=== PATIENT | female | born 1985 | race Caucasian/White ===

== ENCOUNTER 2017-10-12 07:14 | Inpatient (IN) | payer OTHER ==
[2017-10-12] MEDS ORDERED: LR 1,000 ML IV PRN (07:27)
[2017-10-12] MEDS ORDERED: OLIVE OIL 118 ML BTL MISC PRN (07:27)
[2017-10-12] MEDS ORDERED: OXYTOCIN 20 UNIT in LR 1,000 ML IV PRN (07:27)
[2017-10-12] MEDS ORDERED: EPSOM SALT 454 GM TP PRN (07:27)
[2017-10-12] MEDS ORDERED: TERBUTALINE SULFATE 1 MG/ML VIAL IV PRN (07:27)
[2017-10-12 07:42] LABS: PLATELET COUNT 113 10^3/uL (150-400)
[2017-10-12] MEDS ORDERED: fentaNYL 2MCG/ML/BUP 0.1% RTU 100 ML BAG EP ONE (07:56)
[2017-10-12] MEDS ORDERED: PHENYLEPHRINE HCL 100 MCG/ML SYR ONE (07:57)
--- NOTE | 2017-10-12 08:27 | GHP ---
[f rep st] PREOP HISTORY AND PHYSICAL DATE OF ADMISSION: 10/12/2017 ADMISSION DIAGNOSIS: Intrauterine at 38 weeks gestation, who presented in active labor. The patient is a 32-year-old 4, para 2-0-1- 2 at 38 weeks gestation, who has been having contractions on and off for the last 2 days. Her contractions began increasing in frequency and intensity this morning around 2:00 a.m., and she presented to Labor and Delivery, and was found to be at least 6 cm dilated, and is requesting an epidural. The patient' s estimated date of confinement is 10/26/2017, dated by last menstrual period of 01/18/2017, consistent with a 9 week ultrasound. The patient established care at [facility] at 9 weeks gestation. has been overall uncomplicated. PAST MEDICAL HISTORY: Negative. MEDICATIONS: vitamins, DAVID. PAST SURGICAL HISTORY: Repair of nose fracture, and tonsillectomy, and ear tubes. ALLERGIES: No known drug allergies. SOCIAL HISTORY: The patient is a CPA. She is . She lives with her partner and their 2 other children. She denies tobacco, alcohol, or drug use. FAMILY MEDICAL HISTORY: Noncontributory. [employer] TECHNICIAN HISTORY: Menarche age 13. Periods every 28 days lasting 3 days. She is a 4, para 2-0-1-2. In 01/2010, she had a spontaneous vaginal delivery of a 6 pound 8 ounce male at 40 weeks gestation. She had an epidural. and delivery were uncomplicated. In 02/2012, she had a spontaneous vaginal delivery of a 7 pound 10 ounce male at 39 and 5/7th weeks gestation. and delivery were uncomplicated. In 07/2016, she had a spontaneous . She was found to be with a Mirena IUD in place. The Mirena was then removed, and she later had a spontaneous . The patient had thought family status had been complete, but after that experience she decided to conceive again. The current has been uncomplicated. The patient denies any history of any abnormal Pap smears or sexually transmitted diseases. REVIEW OF SYSTEMS: A 10-point review of systems is negative. She has positive movement. No loss of fluid. No vaginal bleeding. She denies headache or changes in vision, nausea, or vomiting. PHYSICAL EXAMINATION: VITAL SIGNS: Stable. GENERAL APPEARANCE: Alert and oriented x3. HEART: Rate is irregularly irregular. LUNGS: Clear to auscultation bilaterally. NECK: Mobile and supple. NEUROMUSCULAR: Grossly intact. NEUROLOGIC: Grossly intact. ABDOMEN: Gravid, nondistended, nontender. EXTREMITIES: Reveal no calf tenderness or edema. : heart tracing is category 1. She is having regular contractions. Infant is in the vertex presentation. She is 6 cm dilated, 100% effaced, and -2 station. LABORATORY DATA: labs: Blood type O positive. Antibody screen negative. Rubella low immune. GBS is negative. HBsAg negative. Her 50 g glucose was 94. She had a negative testing. ASSESSMENT/PLAN: A 32-year-old, 4, para 2-0-1-2, who is 38 weeks gestation in active labor. She is receiving an epidural, and will be managed expectantly. /[id number]/MODL MTDD
[2017-10-12] MEDS ORDERED: ONDANSETRON 4 MG/2 ML VIAL IVP PRN (08:32)
[2017-10-12] MEDS ORDERED: PHENYLEPHRINE HCL 100 MCG/ML SYR IVP PRN (08:32)
--- NOTE | 2017-10-12 08:32 | PREANESOB ---
Obstetric Pre-Anesthesia Info - General Info Proposed Procedure: Labor Epidural : 4 Para: 2 JOYA: 10/26/17 Gestational Age: 38 week(s) and 0 day(s) - Info Status: Full Term FHR Pattern: Reassuring - Labor Status Indications for Labor Analgesia: Pain Control Labor Epidural: Proposed (RBA discussed, patient agrees to proceed) Anesthesia Allergies/Adverse Reactions: Allergy/AdvReac Type Severity Reaction Status Date / Time No Known Allergies Allergy Unverified 10/12/17 07:36 Visit Medications: Generic Name Dose Route Start Last Admin Trade Name Freangelito PRN Reason Stop Dose Admin Lactated Ringer's 1,000 mls @ 0 mls/hr 10/12/17 07:27 Lr IV 10/13/17 07:26 PRN PRN SEE PROTOCOL CONDITIONS Protocol Per Protocol Oxytocin 20 unit/ Lactated 1,002 mls @ 150 mls/hr 10/12/17 07:27 Ringer's IV PRN PRN Post- bleeding Ibuprofen 600 mg 10/12/17 07:27 Motrin PO 04/10/18 07:26 Q6HRS PRN post , inflammation Magnesium Sulfate 454 gm 10/12/17 07:27 Epsom Salt TP 04/10/18 07:26 Q1H PRN perineal discomfort [place] Oil 118 ml 10/12/17 07:27 Sweet Oil MISC 04/10/18 07:26 ONCE PRN perineal massage Terbutaline Sulfate 0.25 mg 10/12/17 07:27 Brethine IV 04/10/18 07:26 ONCE PRN Tachysystole Discontinued Medications Generic Name Dose Route Start Last Admin Trade Name Freq PRN Reason Stop Dose Admin Fentanyl/Bupivacaine HCl Confirm 10/12/17 07:56 Fentanyl/Bupivacaine/Ns 2 Mcg/Ml 0.1% (Premix Administered 10/12/17 07:57 Dose 100 ml EP .STK-MED ONE Phenylephrine HCl Confirm 10/12/17 07:57 Neosynephrine Administered 10/12/17 07:58 Dose 1,000 mcg .ROUTE .STK-MED ONE - Vital Signs Height/Weight (Nursing): Height 170.18 cm Weight 96.162 kg Labs: 10/12/17 07:30 Patient ABO/Rh O POSITIVE 10/12/17 07:30
[2017-10-12] MEDS ORDERED: fentaNYL 2MCG/ML/BUP 0.1% RTU 100 ML EP SCH (09:00)
[2017-10-12] MEDS ORDERED: LR 500 ML IV SCH (09:00)
--- NOTE | 2017-10-12 10:29 | OBPROG ---
Labor Progress Note Assessment/Plan: Assessment: Plan: Subjective/Intrapartum Course: 10/12/17 10:26 patient is comfortable with epidural. I examined patient after epidural and patient was found to be 3/80/-2, not 6 cm. discussed SVE - will reassess in an hour or two. Objective: 10/12/17 07:30 Patient ABO/Rh O POSITIVE 10/12/17 07:30 - SVE Dilation (cm): 3 Effacement (%): 80 Station: -2 Membranes: Intact - FHR Assessment Nolasco FHR Pattern Variability: Moderate FHR Category: 1 - AP Antepartum Course: 10/12/17 10:28 uncomplicated . thought family status was complete and then conceived with Mirena in. Had Mirena removed and then had sab. decided wanted to have another . uncomplicated . negative genetic testing. Oxytocin Orders Assessment - Pre-Induction/Augmentation Assessment Gestational Age: 38 week(s) and 0 day(s) ICD10 Worksheet Patient Problems: Problems Problem Status Onset Normal labor Acute
--- NOTE | 2017-10-12 13:52 | OBPROG ---
Labor Progress Note Assessment/Plan: Assessment: Plan: Subjective/Intrapartum Course: 10/12/17 10:26 patient is comfortable with epidural. I examined patient after epidural and patient was found to be 3/80/-2, not 6 cm. discussed SVE - will reassess in an hour or two. 10/12/17 13:45 patient comfortable with epidural. SVE per rn 5-6 cm. will augment as needed. status reassuring. Objective: 10/12/17 07:30 Patient ABO/Rh O POSITIVE 10/12/17 07:30 - SVE Dilation (cm): 5 Effacement (%): 80 Station: 0 Membranes: Intact - Contraction Pattern Assessment Current Contraction Pattern: Regular - FHR Assessment Nolasco FHR (bpm): 130 FHR Pattern Variability: Moderate FHR Category: 1 - AP Antepartum Course: 10/12/17 10:28 uncomplicated . thought family status was complete and then conceived with Mirena in. Had Mirena removed and then had sab. decided wanted to have another . uncomplicated . negative genetic testing. Oxytocin Orders Assessment - Pre-Induction/Augmentation Assessment Gestational Age: 38 week(s) and 0 day(s) ICD10 Worksheet Patient Problems: Problems Problem Status Onset Normal labor Acute
--- NOTE | 2017-10-12 14:39 | OBPROG ---
Labor Progress Note Assessment/Plan: Assessment: Plan: Subjective/Intrapartum Course: 10/12/17 10:26 patient is comfortable with epidural. I examined patient after epidural and patient was found to be 3/80/-2, not 6 cm. discussed SVE - will reassess in an hour or two. 10/12/17 13:45 patient comfortable with epidural. SVE per rn 5-6 cm. will augment as needed. status reassuring. 10/12/17 14:37 patient overall comfortable but still feels exams and pressure. arom - scant amount of clear fluid. pushed bolus button. status reassuring. Objective: 10/12/17 07:30 Patient ABO/Rh O POSITIVE 10/12/17 07:30 - SVE Dilation (cm): 6 Effacement (%): 90 Station: 0 Membranes: Intact Amniotic Fluid Color: Clear - Contraction Pattern Assessment Current Contraction Pattern: Regular - FHR Assessment Nolasco FHR Pattern Variability: Moderate FHR Category: 1 - Procedures Non-surgical Procedures: Amniotomy - AP Antepartum Course: 10/12/17 10:28 uncomplicated . thought family status was complete and then conceived with Mirena in. Had Mirena removed and then had sab. decided wanted to have another . uncomplicated . negative genetic testing. Oxytocin Orders Assessment - Pre-Induction/Augmentation Assessment Gestational Age: 38 week(s) and 0 day(s) ICD10 Worksheet Patient Problems: Problems Problem Status Onset Normal labor Acute
[2017-10-12] MEDS ORDERED: BUPIVACAINE 0.25% 30 ML SDV ONE (14:56)
[2017-10-12] MEDS ORDERED: AMMONIA AROMATIC 1 EACH AMP IH ONE (15:04)
[2017-10-12] MEDS ORDERED: LIDOCAINE 1% 300 MG/30 ML SDV ONE (15:04)
[2017-10-12] MEDS ORDERED: OLIVE OIL 118 ML BTL ONE (15:04)
[2017-10-12] MEDS ORDERED: OXYTOCIN 10 UNIT/ML VIAL ONE (15:05)
[2017-10-12] MEDS ORDERED: TERBUTALINE SULFATE 1 MG/ML VIAL ONE (15:05)
[2017-10-12] MEDS ORDERED: MISOPROSTOL 200 MCG TAB ONE (15:05)
--- NOTE | 2017-10-12 16:30 | OBDEL ---
Info Type: Vaginal Presentation at Delivery: Vertex L&D Analgesia/Anesthesia Type: Epidural GBS+: No - Hospital Course Intrapartum: 10/12/17 10:26 patient is comfortable with epidural. I examined patient after epidural and patient was found to be 3/80/-2, not 6 cm. discussed SVE - will reassess in an hour or two. 10/12/17 13:45 patient comfortable with epidural. SVE per rn 5-6 cm. will augment as needed. status reassuring. 10/12/17 14:37 patient overall comfortable but still feels exams and pressure. arom - scant amount of clear fluid. pushed bolus button. status reassuring. 10/12/17 16:26 rapid progress to complete. Indications for Delivery: Spontaneous Labor Vaginal Delivery - Delivery Provider Delivery Physician/CNM: Kandy Coleman - Labor and Delivery Onset of Contractions Date: 10/12/17 Onset of Contractions Time: 02:00 Onset of Contractions Type: Spontaneous Rupture of Membranes Date: 10/12/17 Rupture of Membranes Time: 14:37 Rupture of Membranes Type: Artificial Amniotic Fluid Color: Clear Dilation Complete Date: 10/12/17 Dilation Complete Time: 15:38 Placenta Delivery Date: 10/12/17 Placenta Delivery Time: 16:05 Total Hours of Labor: 14 Non-surgical Procedures: Amniotomy Laceration: 1st Degree Repair: 3-0 Vaginal Sponge Count Correct: Yes Vaginal Needle Count Correct: Yes Vaginal Sweep Performed: No EBL: 200 Delivery Events: None Delivery Comment: rapid progress to complete. pushed with one contraction. Data JOYA: 10/26/17 Gestational Age: 38 week(s) and 0 day(s) Nolasco Delivery Date: 10/12/17 Delivery Time: 16:00 Sex of Infant: Male Score (1 Min): 8 Score (5 Min): 8 ICD10 Worksheet Patient Problems: Problems Problem Status Onset Normal labor Acute
[2017-10-12] MEDS ORDERED: HYDROCORTISONE 0.5% CREAM TP PRN (16:32)
[2017-10-12] MEDS ORDERED: SIMETHICONE 80 MG TAB CHEW PO PRN (16:32)
[2017-10-12] MEDS ORDERED: ACETAMINOPHEN 325 MG TAB PO PRN (16:32)
[2017-10-12] MEDS: IBUPROFEN 600 MG TAB PO PRN (18:17)
[2017-10-13] MEDS: HYDROCODONE/APAP 5/325 TAB PO PRN ×6 (00:06→15:46)
[2017-10-13] MEDS: IBUPROFEN 600 MG TAB PO PRN ×4 (00:07→19:44)
[2017-10-13] MEDS: DOCUSATE SODIUM 100 MG CAP PO PRN ×2 (08:05→19:45)
[2017-10-13] MEDS ORDERED: MEASLES,MUMPS&RUBELLA VACC/PF 0.5 ML VIAL SC ONE (13:39)
--- NOTE | 2017-10-13 13:39 | OBPP ---
Progress Note Assessment/Plan: Assessment: 1) s/p PPD #1 - pt is stable 2) Rubella low-immune Plan: Continue routine pp care Encourage ambulation Plan for d/c home in am 1/4 10/13/17 13:35 Subjective/ Course: Pt seen and examined. She is having painful cramps, kassandra when . Relief with [place], Ibu and heat. Mod lochia. Pt is OOB, derek regular diet, voiding and passing flatus. BF well so far. Wants to stay the night. 10/13/17 13:36 Objective: 10/12/17 07:30 Patient ABO/Rh O POSITIVE 10/12/17 07:30 Temp Pulse Resp BP Pulse Ox 36.3 C 53 L 16 109/76 97 10/13/17 08:15 10/13/17 08:15 10/13/17 08:15 10/13/17 08:15 10/13/17 00:34 Uterine Position/Fundal Height: Umbilicus -2 Uterine Tone: Firm Physical Exam - Physical Exam Respiratory: lungs clear, normal breath sounds Cardiac/Chest: regular rate, rhythm Abdomen: normal bowel sounds, non-tender, soft, flatus (+) Extremities: non-tender, normal inspection Skin: normal color, warm/dry Neuro/Psych: alert, normal mood/affect, oriented x 3
--- NOTE | 2017-10-13 13:57 | SOAPPROG ---
SOAP Progress Note Assessment/Plan: Assessment: POD 1 epidural analgesia. Doing well. Plan: Continue routine post-op cares. Call with questions or concerns. 10/13/17 13:57 Subjective: Patient seen and examined on the floor. Doing well, denies complaint or concern about the epidural. No NICE, backache, difficulty walking or urinating. Objective: Vital Signs Temp Pulse Resp BP Pulse Ox 36.3 C 53 L 16 109/76 97 10/13/17 08:15 10/13/17 08:15 10/13/17 08:15 10/13/17 08:15 10/13/17 00:34 Laboratory Results 10/12/17 07:30 10/12/17 10/13/17 10/14/17 05:59 05:59 05:59 Output Total 400 Balance -400 Physical Exam - Physical Exam General Appearance: no apparent distress Respiratory: normal breath sounds Cardiac/Chest: normal peripheral pulses Back: Normal inspection ICD10 Worksheet Patient Problems: Problems Problem Status Onset Delivery normal Acute Normal labor Acute
[2017-10-13] MEDS ORDERED: oxyCODONE IR 15 MG TAB PO PRN (17:41)
[2017-10-13] MEDS: ACETAMINOPHEN 500 MG TAB PO PRN ×2 (17:55→23:51)
[2017-10-13] MEDS: AMPICILLIN/SULBACTAM 1.5 GM in NS 50 ML IV SCH ×2 (18:17→23:51)
[2017-10-13] MEDS: oxyCODONE IR 5 MG TAB PO PRN ×2 (19:44→23:50)
[2017-10-14] MEDS: IBUPROFEN 600 MG TAB PO PRN ×4 (02:09→20:09)
[2017-10-14] MEDS: oxyCODONE IR 5 MG TAB PO PRN ×3 (04:11→20:23)
[2017-10-14] MEDS: AMPICILLIN/SULBACTAM 1.5 GM in NS 50 ML IV SCH ×3 (05:51→18:06)
[2017-10-14 06:12] LABS: PLATELET COUNT 129 10^3/uL (150-400)
--- NOTE | 2017-10-14 08:30 | OBPP ---
Progress Note Assessment/Plan: Assessment: [id number] PPD#2 PP endometritis r/o PE Plan: stat spiral chest CT cont IV abx stat blood cx x2 CBC/CMP consulted with Dr Lucas- agrees with plan of care 10/14/17 08:26 Subjective/ Course: Pt seen and examined. She is having painful cramps, kassandra when . Relief with [place], Ibu and heat. Mod lochia. Pt is OOB, derek regular diet, voiding and passing flatus. BF well so far. Wants to stay the night. 10/13/17 13:36 10/14/17 08:30 Pt stable, but shaking uncontrollably. She denies any chest pain, does report SOB- with inability to take a deep breath. She denies any heavy bleeding. She is alert and coherent. She reports increasing pain in her uterus. Denies any difficulty urinating or ambulating. She denies any breast pain. 10/14/17 08:42 Objective: 10/14/17 05:50 Patient ABO/Rh O POSITIVE 10/12/17 07:30 Temp Pulse Resp BP Pulse Ox 35.7 C L 80 16 102/64 96 10/14/17 04:34 10/14/17 04:34 10/14/17 04:34 10/14/17 04:34 10/14/17 04:34 Uterine Position/Fundal Height: Umbilicus -1, Midline Uterine Tone: Firm Physical Exam - Physical Exam Neck: non-tender, supple Respiratory: lungs clear Cardiac/Chest: tachycardia Abdomen: soft (, tender) Extremities: non-tender (, negative kaylan's sign) Skin: normal color, warm/dry Neuro/Psych: no motor/sensory deficits, alert, normal mood/affect, oriented x 3
[2017-10-14 09:02] LABS: PLATELET COUNT 129 10^3/uL (150-400)
[2017-10-14] MEDS ORDERED: IOPAMIDOL (ISOVUE 370) 100 ML BTL IV ONE (09:27)
[2017-10-14] MEDS: ACETAMINOPHEN 500 MG TAB PO PRN ×2 (10:22→20:23)
[2017-10-14] MEDS: DOCUSATE SODIUM 100 MG CAP PO PRN (11:51)
[2017-10-14] MEDS ORDERED: GENTAMICIN 100 MG/NACL 100 ML IV ONE (21:59)
[2017-10-15] MEDS: AMPICILLIN/SULBACTAM 1.5 GM in NS 50 ML IV SCH ×4 (00:23→18:33)
[2017-10-15] MEDS: IBUPROFEN 600 MG TAB PO PRN ×4 (02:11→20:12)
[2017-10-15] MEDS ORDERED: GENTAMICIN 80 MG/NACL 100 ML IV SCH (06:00)
[2017-10-15 06:43] LABS: PLATELET COUNT 142 10^3/uL (150-400)
[2017-10-15] MEDS: DOCUSATE SODIUM 100 MG CAP PO PRN ×2 (08:05→20:12)
--- NOTE | 2017-10-15 09:49 | OBPP ---
Progress Note Assessment/Plan: Assessment: 32 y/o PPD #3 s/p with post- endometritis now on Unasyn and Gentamycin Plan: Will continue antibiotics until tomorrow am and then re assess for discharge and oral antibiotics. Pharmacy will change dose of Gentamycin to weight based. Continue nursing and otherwise routine PPC. 10/15/17 09:50 Subjective/ Course: Pt seen and examined. She is having painful cramps, kassandra when . Relief with [place], Ibu and heat. Mod lochia. Pt is OOB, derek regular diet, voiding and passing flatus. BF well so far. Wants to stay the night. 10/13/17 13:36 10/14/17 08:30 Pt stable, but shaking uncontrollably. She denies any chest pain, does report SOB- with inability to take a deep breath. She denies any heavy bleeding. She is alert and coherent. She reports increasing pain in her uterus. Denies any difficulty urinating or ambulating. She denies any breast pain. 10/14/17 08:42 10/15/17 09:46 Pt is finally feeling better this am. She denies fever/ chills today, her uterine pain has substantially improved and she is feeling like herself again. She denies chest pain/ SOB. She is ambulating and voiding without difficulty and has min lochia. Breast feeding is going well and her milk is coming in, baby has a good latch and she denies nipple/ breast pain. She would like to go home today, but understands we need to watch her until at least 24 hours afebrile. Objective: 10/15/17 06:15 10/14/17 08:37 Patient ABO/Rh O POSITIVE 10/12/17 07:30 Total Bilirubin 0.8 mg/dL (0.1-1.4) 10/14/17 08:37 AST 27 IU/L (14-46) 10/14/17 08:37 ALT 26 IU/L (9-52) 10/14/17 08:37 Temp Pulse Resp BP Pulse Ox 36.8 C 82 16 88/51 L 92 10/15/17 06:15 10/15/17 06:15 10/15/17 06:15 10/15/17 06:15 01/05/18 06:15 Uterine Position/Fundal Height: Umbilicus -3 Uterine Tone: Firm Physical Exam - Physical Exam Neck: non-tender, full range of motion, supple Respiratory: chest non-tender, lungs clear, normal breath sounds Cardiac/Chest: regular rate, rhythm Abdomen: normal bowel sounds, other (UFF U-3, non tender) Extremities: swelling (no ), Hetal's sign (neg)
[2017-10-15] MEDS: GENTAMICIN SULFATE 120 MG in D5W 100 ML IV SCH ×2 (15:28→23:19)
[2017-10-15 20:34] VITALS: RESP 16
[2017-10-16] MEDS: AMPICILLIN/SULBACTAM 1.5 GM in NS 50 ML IV SCH ×2 (00:30→05:57)
[2017-10-16 00:37] VITALS: O2SAT 96
[2017-10-16] MEDS: IBUPROFEN 600 MG TAB PO PRN (02:05)
[2017-10-16] MEDS: GENTAMICIN SULFATE 120 MG in D5W 100 ML IV SCH (06:20)
[2017-10-16 10:12] VITALS: BP 115/78; PULSE 67; TEMP 96.9
--- NOTE | 2017-10-16 10:24 | OBPP ---
Progress Note Assessment/Plan: Assessment: ppd# 4 s/p pp course complicated by endometritis - has improved clinically breast feeding Plan: discharge instructions follow up instructions 10/16/17 10:21 Subjective/ Course: Pt seen and examined. She is having painful cramps, kassandra when . Relief with [place], Ibu and heat. Mod lochia. Pt is OOB, derek regular diet, voiding and passing flatus. BF well so far. Wants to stay the night. 10/13/17 13:36 10/14/17 08:30 Pt stable, but shaking uncontrollably. She denies any chest pain, does report SOB- with inability to take a deep breath. She denies any heavy bleeding. She is alert and coherent. She reports increasing pain in her uterus. Denies any difficulty urinating or ambulating. She denies any breast pain. 10/14/17 08:42 10/15/17 09:46 Pt is finally feeling better this am. She denies fever/ chills today, her uterine pain has substantially improved and she is feeling like herself again. She denies chest pain/ SOB. She is ambulating and voiding without difficulty and has min lochia. Breast feeding is going well and her milk is coming in, baby has a good latch and she denies nipple/ breast pain. She would like to go home today, but understands we need to watch her until at least 24 hours afebrile. 10/16/17 10:23 patient is doing much better! feels back to normal. anxious to go home. breast feeding is going well. denies headache and changes in vision. is afebrile more than 24 hours. pain is well controlled. Objective: 10/15/17 06:15 10/14/17 08:37 Patient ABO/Rh O POSITIVE 10/12/17 07:30 Total Bilirubin 0.8 mg/dL (0.1-1.4) 10/14/17 08:37 AST 27 IU/L (14-46) 10/14/17 08:37 ALT 26 IU/L (9-52) 10/14/17 08:37 Temp Pulse Resp BP Pulse Ox 36.1 C 67 16 115/78 96 10/16/17 08:00 10/16/17 08:00 10/16/17 08:00 10/16/17 08:00 10/16/17 06:02 Uterine Position/Fundal Height: Umbilicus -2 Uterine Tone: Firm Physical Exam - Physical Exam Neck: non-tender, full range of motion, supple Respiratory: chest non-tender, lungs clear, normal breath sounds Cardiac/Chest: normal peripheral pulses, regular rate, rhythm Abdomen: normal bowel sounds, non-tender Extremities: normal range of motion, non-tender, normal inspection, normal capillary refill Skin: normal color, warm/dry Neuro/Psych: no motor/sensory deficits, alert, normal mood/affect, oriented x 3
[2017-10-16] MEDS ORDERED: AMOX/CLAVULANATE 500/125 MG TAB PO SCH (21:00)
== END 2017-10-16 11:21 | disposition home or self-care (01) | DRG 774 ==
LOC: FLD 07:14 → FOB 19:53
PROVIDERS: ADMIT Obstetrics & Gynecology; ATTEND Obstetrics & Gynecology
PROC: 10907ZC Drainage of Amniotic Fluid, Therapeutic from Products of Conception, Via Natural or Artificial Opening (ICD-10-PCS; principal; 2017-10-12)
PROC: 0HQ9XZZ Repair Perineum Skin, External Approach (ICD-10-PCS; principal; 2017-10-12)
PROC: 10E0XZZ Delivery of Products of Conception, External Approach (ICD-10-PCS; principal; 2017-10-12)
DX: O70.0 First degree perineal laceration during delivery (principal); O86.12 Endometritis following delivery; Z3A.38 38 weeks gestation of pregnancy; Z37.0 Single live birth
CPT/HCPCS: J1580; J2370; J3105; Q9967